=== PATIENT | female | born 1985 | race Caucasian/White ===

== ENCOUNTER 2019-02-13 06:27 | Emergency (ER) | payer OTHER ==
[~2019-02-13] VITALS: Ht 160 cm; Wt 99.8 kg
[~2019-02-13 06:27] MED LIST: LEVO150T6 PO
[2019-02-13] MEDS ORDERED: ORPHENADRINE 60 MG/2 ML (NORFLEX) AMP IM STA (07:22)
[2019-02-13] MEDS ORDERED: KETOROLAC 60 MG/2 ML VIAL IM STA (07:22)
--- NOTE | 2019-02-13 07:34 | ED Neck-Back Pain/Injury ---
General Chief Complaint: Head/Cervical Problems Stated Complaint: SWOLLEN NECK,HURTS TO BREATH Nursing Triage Note: TO ED PER W/C REPORTS SINCE YESTERDAY HAS HAD PAIN IN NECK. TODAY WAS AT WORK PAIN GOING DOWN BACK. Nursing Sepsis Screen: No Definite Risk (LUBNA OVIEDO STUDENT) History of Present Illness Date Seen by Provider: Feb 13, 2019 Time Seen by Provider: 07:05 Initial Comments The patient is here with a complaint of neck pain that started yesterday with what she described as a "kink in her neck". She reports that it has progressed to a sharp shooting pain that radiates down her neck, into her back and shoulder. She also reports that deep breathing is causing pain in her neck. This morning the patient is having difficulty raising her left arm due to pain in her neck. She has decreased sensation in the lateral aspect of her left hand. She also complains of numbness and tingling in her arms and hands, mostly at night, for the last month. The patient has been experiencing headaches everyday for the last 4 months. Location: C-Spine, Paraspinous Muscles Timing/Duration: 1-2 Days Severity: Severe Pain/Injury Location: Neck Method of Injury: Unknown (LUBNA OVIEDO STUDENT) Location: C-Spine, Paraspinous Muscles (cervical) Timing/Duration: 1-2 Days Severity: Moderate Associated Symptoms: muscle spasms; No sensory/motor loss, No lower back pain (GILA KENNEDY MD) Allergies and Home Medications Allergies Coded Allergies: No Known Drug Allergies (Unverified , 12/02/15) Patient Home Medication List Home Medication List Reviewed: Yes (GILA KENNEDY MD) Review of Systems Constitutional: No fever, No malaise EENTM: No blurred vision, No double vision Respiratory: No cough; short of breath Cardiovascular: No chest pain, No palpitations Gastrointestinal: No abdominal pain, No constipation, No diarrhea Musculoskeletal: muscle weakness, neck pain (LUBNA OVIEDO STUDENT) Constitutional: No fever, No malaise Respiratory: see HPI Cardiovascular: no symptoms reported Musculoskeletal: muscle pain, neck pain (GILA KENNEDY MD) Past Lkxuzle-Qeecsu-Qhbpob Hx Past Med/Social Hx: Reviewed Nursing Past Med/Soc Hx (GILA KENNEDY MD) Patient Social History Alcohol Use: Rarely Uses Alcohol Beverage of Choice: Wine Recreational Drug Use: No Smoking Status: Current Everyday Smoker Type Used: Cigarettes, Electronic/Vapor Recent Foreign Travel: No Contact w/Someone Who Travel: No Recent Infectious Disease Expo: No (LUBNA OVIEDO STUDENT) Past Medical History Surgeries: Yes Thyroidectomy, Tubal Ligation Respiratory: No Cardiac: No Neurological: No Reproductive Disorders: No Gastrointestinal: No Musculoskeletal: No Endocrine: Yes (THYROID) Cancer: No Psychosocial: No Blood Disorders: No (LUBNA OVIEDO STUDENT) Family Medical History Reviewed Nursing Family Hx (GILA KENNEDY MD) No Pertinent Family Hx (LUBNA OVIEDO) Physical Exam Vital Signs Vital Signs - First Documented 02/13/19 06:53 Temp 98.4 Pulse 87 Resp 18 B/P (MAP) 124/72 (89) Pulse Ox 100 O2 Delivery Room Air (GILA KENNEDY MD) Vital Signs Capillary Refill : Less Than 3 Seconds (LUBNA OVIEDO STUDENT) Height, Weight, BMI Height: 5'3.00" Weight: 220lbs. oz. 99.976663zc; BMI Method:Stated General Appearance: WD/WN, Mild Distress HEENT: PERRL/EOMI Neck: No Full Range of Motion; Tender Lateral, Tender Midline Cardiovascular: Regular Rate, Rhythm, No Edema, No Murmur Respiratory: Lungs Clear, Normal Breath Sounds Neurologic/Psychiatric: Alert, Oriented x3, Sensory Deficit Skin: Normal Color, Warm/Dry (LUBNA OVIEDO STUDENT) General Appearance: WD/WN, Mild Distress Cardiovascular: Regular Rate, Rhythm, No Murmur Respiratory: Lungs Clear, Normal Breath Sounds Neurologic/Psychiatric: Alert, Oriented x3 Skin: Normal Color, Warm/Dry (GILA KENNEDY MD) Progress/Results/Core Measures Results/Orders My Orders Orders - GILA KENNEDY MD Ct Cervical Spine Wo (02/13/19 07:22) Ketorolac Injection (Toradol Injection) (02/13/19 07:22) Orphenadrine Injection (Norflex Injectio (02/13/19 07:22) (GILA KENNEDY MD) Vital Signs/I&O 02/13/19 06:53 Temp 98.4 Pulse 87 Resp 18 B/P (MAP) 124/72 (89) Pulse Ox 100 O2 Delivery Room Air (GILA KENNEDY MD) Blood Pressure Mean: 89 Progress Progress Note : Time: 07:[address] of the cervical spine with ketorolac and orphenadrine for concerns of cervical radiculopathy. (LUBNA OVIEDO MED STUDENT) Progress Note : Progress Note Have seen and evaluated the patient and agree with above except as indicated. Have directed the plan of care. Patient is here with bilateral neck pain but left greater than right. She does not know any specific injury but does have repetitive motion at work especially with her left arm. Woke up with this yesterday morning. Pain that radiates from the neck down to the back and into the arms. Feels stiff on the lateral aspects. We will give Toradol 60 mg IM and Norflex [address] of the C-spine. Monitor patient. 0920 not a whole lot better but may be a little bit. She declined further pain medicine. CT is negative. Discharged home with return precautions. Patient verbalize understanding instructions and agreement with plan. (GILA KENNEDY MD) Diagnostic Imaging Diagonstic Imaging: CT Plain Films/CT/US/NM/MRI: c-spine Comments NAME: HAYDEE FARRELL [facility] REC#: [id number] PT STATUS: REG ER : 1985 PHYSICIAN: GILA KENNEDY MD ADMIT DATE: 02/13/19/ER Signed Date of Exam: 02/13/19 CT CERVICAL SPINE WO PROCEDURE: CT cervical spine without contrast. TECHNIQUE: Multiple contiguous axial images were obtained through the cervical spine without the use of intravenous contrast. Sagittal and coronal reformations were then performed. Auto Exposure Controls were utilized during the CT exam to meet ALARA standards for radiation dose reduction. INDICATION: Neck pain and swelling with left upper extremity paresthesia. FINDINGS: There is mild straightening of normal cervical lordosis. Vertebral body heights and disc spaces are maintained. There is no evidence of an acute fracture or subluxation. There are mildly prominent deep cervical lymph nodes which are symmetric, bilaterally. There is no evidence of focal mass or fluid collection identified. IMPRESSION: No acute abnormality is identified in the cervical spine. Mildly prominent deep cervical lymph nodes are generally symmetric suggesting probable reactive in nature. Otherwise, there is no evidence of mass, fluid collection or airway encroachment. Dictated by: Dictated on workstation # [id number] Dict: 02/13/19809 Trans: 02/13/19827 Interpreted by: FRANCK VALDERRAMA MD Electronically signed by: FRANCK VALDERRAMA MD 02/13/19827 (GILA KENNEDY MD) Departure Impression Primary Impression: Neck muscle strain Qualified Codes: S16.1XXA - Strain of muscle, fascia and tendon at neck level, initial encounter Disposition: HOME, SELF-CARE Condition: Stable Departure-Patient Inst. Decision time for Depature: 09:25 (GILA KENNEDY MD) Referrals: PRATIMA FARRELL DO (PCP/Family) Primary Care Physician Patient Instructions: Cervical Muscle Strain (DC) Add. Discharge Instructions: All discharge instructions reviewed with patient and/or family. Voiced understanding. Drink plenty of fluids. You may take ibuprofen 600 mg every 8 hours as needed for pain. You may also take Tylenol/acetaminophen 1000 mg every 8 hours as needed for pain.You may use [id number] Icy Hot with lidocaine patches, Aspercreme with lidocaine patches, Salonpas with lidocaine patches or similar items to area of concern per package directions. Return for worse pain, weakness, numbness, or eating problems, fever, vision or balance problems or other concerns as needed. Scripts Cyclobenzaprine HCl (Cyclobenzaprine HCl) 10 Mg Tablet 10 MG PO Q8H PRN for SPASMS, #15 TAB 0 Refills Prov: GILA KENNEDY MD 02/13/19 Work/School Note: Work Release Form Date Seen in the Emergency Department: Feb 13, 2019 Return to Work: Feb 14, 2019 Restrictions: No Restrictions LUBNA OVIEDO STUDENT Feb 13, 2019 07:34 GILA KENNEDY MD Feb 13, 2019 09:27
--- NOTE | 2019-02-13 07:37 | NUR ---
WARM BLANKET PLACED AROUND BACK OF NECK.
--- NOTE | 2019-02-13 07:54 | NUR ---
BACK FROM CT
--- NOTE | 2019-02-13 08:15 | Diagnostic Imaging Report ---
PROCEDURE: CT cervical spine without contrast. TECHNIQUE: Multiple contiguous axial images were obtained through the cervical spine without the use of intravenous contrast. Sagittal and coronal reformations were then performed. Auto Exposure Controls were utilized during the CT exam to meet ALARA standards for radiation dose reduction. INDICATION: Neck pain and swelling with left upper extremity paresthesia. FINDINGS: There is mild straightening of normal cervical lordosis. Vertebral body heights and disc spaces are maintained. There is no evidence of an acute fracture or subluxation. There are mildly prominent deep cervical lymph nodes which are symmetric, bilaterally. There is no evidence of focal mass or fluid collection identified. IMPRESSION: No acute abnormality is identified in the cervical spine. Mildly prominent deep cervical lymph nodes are generally symmetric suggesting probable reactive in nature. Otherwise, there is no evidence of mass, fluid collection or airway encroachment. Dictated by: Dictated on workstation # [id number]
--- NOTE | 2019-02-13 09:18 | NUR ---
DR KENNEDY TO ROOM
[2019-02-13] MEDS ORDERED: CYCL10TA9 PO (09:27)
[2019-02-13 09:29] VITALS: BP 121/63
== END 2019-02-13 09:34 | disposition home or self-care (01) ==
LOC: EDUNIT# 06:27 → ER 06:31
DX: S16.1XXA Strain of muscle, fascia and tendon at neck level, initial encounter (principal); F17.210 Nicotine dependence, cigarettes, uncomplicated; F17.290 Nicotine dependence, other tobacco product, uncomplicated; Z98.51 Tubal ligation status; X50.0XXA Overexertion from strenuous movement or load, initial encounter
CPT/HCPCS: 72125